=== PATIENT | male | born 1940 | race African-American/Black ===

== ENCOUNTER → 2016-08-24 | Outpatient (CLI) | payer OTHER, MEDICARE ==
[~2016-08-24] MED LIST: ALLEGRA180 MG PO; AMARYL2 MG PO; ASPIRIN EC81 M1 PO; AZOR 10-20 MG1 EACH PO; BUDESONIDE0.5 MG/2 M INH; GLUCOPHAGE500 MG PO; SYMBICORT160 MCG/4. INH; VENTOLIN HFA INH8 GM INH; ZETIA10 MG PO
== END ==
LOC: CAT 09:57
DX: R91.1 Solitary pulmonary nodule (principal)

== ENCOUNTER → 2017-08-23 | Outpatient (CLI) | payer OTHER, MEDICARE ==
[~2017-08-23] MED LIST changes: +KEFLEX500 M1 PO; +[UNRECOGNIZED DRUG - CODE] PO
== END ==
LOC: CAT 08:54
DX: R91.1 Solitary pulmonary nodule (principal); I25.10 Atherosclerotic heart disease of native coronary artery without angina pectoris; J98.11 Atelectasis; J44.9 Chronic obstructive pulmonary disease, unspecified

== ENCOUNTER 2017-09-11 23:08 | Emergency (ER) | payer OTHER, MEDICARE ==
[~2017-09-11] VITALS: Ht 182.9 cm; Wt 102.5 kg
[~2017-09-11 23:08] MED LIST changes: -KEFLEX500 M1 PO; -[UNRECOGNIZED DRUG - CODE] PO
[2017-09-11] MEDS ORDERED: [UNRECOGNIZED DRUG - CODE] PO (23:17)
[2017-09-12] MEDS ORDERED: KEFLEX500 M1 PO (00:56)
== END 2017-09-12 01:14 | disposition home or self-care (01) ==
LOC: ER 23:08
DX: R04.0 Epistaxis (principal); I10 Essential (primary) hypertension; E11.9 Type 2 diabetes mellitus without complications; M19.90 Unspecified osteoarthritis, unspecified site; J44.9 Chronic obstructive pulmonary disease, unspecified; E78.00 Pure hypercholesterolemia, unspecified; Z96.643 Presence of artificial hip joint, bilateral; Z87.891 Personal history of nicotine dependence

== ENCOUNTER → 2018-09-17 | Outpatient (CLI) | payer OTHER, MEDICARE ==
[~2018-09-17] MED LIST changes: +KEFLEX500 M1 PO; +[UNRECOGNIZED DRUG - CODE] PO
== END ==
LOC: CAT 09-10 13:53
DX: I25.10 Atherosclerotic heart disease of native coronary artery without angina pectoris (principal); R91.1 Solitary pulmonary nodule

== ENCOUNTER → 2019-01-23 | Outpatient (CLI) | payer OTHER, MEDICARE | LOC: RAD 13:38 | DX: R60.0 Localized edema (principal); J44.9 Chronic obstructive pulmonary disease, unspecified; M79.89 Other specified soft tissue disorders ==

== ENCOUNTER → 2019-03-13 | Outpatient (CLI) | payer OTHER, MEDICARE ==
[~2019-03-13] VITALS: Ht 182.9 cm; Wt 93.9 kg
[~2019-03-13] MED LIST changes: +ALOGLIPTIN12.5 MG PO; +BENAZEPRIL HCL20 MG PO; +ERGOCAL2500 UNIT PO; +LANTUS SUBQ; +LIPITOR40 MG PO; +LIPOFLAVONOID1 EACH PO; +OXYBUTYNIN 5 MG5 M2 PO; +PREDNISONE 5 MG5 M1 PO; +PROAIR HFA8.5 GM INH; +SPIRIVA INH; +TORSEMIDE20 MG PO; +TRAMADOL HCL50 MG PO; +TYLENOL EXTRA500 MG PO
--- NOTE | ~2019-03-13 | HPC ---
[facility] [address] [place] [address] PAIN MANAGEMENT CONSULTATION Name: SANDYPIETRO Ariel NIXON Room #: REG [facility]#: [id number] Admission: 03/13/19 Attend Phys: Jaden Guerrero MD Discharge: Date of : 42 Report #: [id number] THIS REPORT FOR: //name// CC: Jaden Harris DATE OF SERVICE: 03/13/2019 CHIEF COMPLAINT: Low back and sharp pain. HISTORY OF PRESENT ILLNESS: The patient is a 78-year-old gentleman who has been referred to the pain clinic for evaluation. He has been experiencing pain since 11/2018. It involves his lower back. He describes it as constant, periodic, aching and rates it as a 7/10. Pain is exacerbated when he gets out of bed. He notes that the pain improves when he is sitting and stable in one place. Describes it as aching, throbbing and sharp and rates it as a 7/10 today. On average, it is about a 3, can rise to the level 9/10 on the worst days. He did have some similar pain about 3 years ago. He has tried heat and cold, but not sure how much those benefited him. He has been using a heating pad. He has used tenths in the back for a short period of time. Has used some lidocaine patches [id number]. He has not had back surgery. Denies any GI problems associated with this. He does have diabetes. His blood sugars have been in about the 140-190 range. He has used oxygen for about the last 6 years. PAST MEDICAL HISTORY: COPD, diabetes, hypertension and hypercholesterolemia. The patient is normally on 3-6 liters of oxygen via nasal cannula. 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 CURRENT MEDICATIONS: Insulin Lantus, albuterol, ProAir 8.5 grams, Spiriva hand inhaler, Bi-flow/lemon/VIT Lipo-Flavonoid caplets b.i.d., Tylenol Extra Strength 500 mg t.i.d. as needed, vitamin D2 2500 units, takes 5000 units daily, oxybutynin 5 mg, 10 mg daily, torsemide 20 mg, Lotensin 20 mg, alogliptin 12.5 mg, Lipitor 40 mg, prednisone 5 mg 3 tablets daily, Symbicort 160/4.5, Ventolin inhaler, aspirin 81 mg, Lisseth 180 mg, ezetimibe 10 mg (Zetia), Glucophage 500 mg b.i.d., Diego 06/12. ALLERGIES: No known drug allergies. SOCIAL HISTORY: He is retired, has been retired for 21 years. REVIEW OF SYSTEMS: Generally good health, fatigue, weakness, wears glasses, hearing loss, shortness of breath, awakens at night to urinate, lightheadedness, dizziness, numbness and tingling sensation use of insulin anemia. [address] [address] PAIN MANAGEMENT CONSULTATION Name: PIETRO DELGADO JR Room #: REG [facility] Phyllis#: [id number] Admission: 03/13/19 Attend Phys: Jaden Guerrero MD Discharge: Date of : 42 Report #: [id number] LABORATORY DATA: No new laboratory values are available at the time of our interview. PAIN CLINIC ASSESSMENT/PQRS: 1. Osteoarthritis. The patient does have osteoarthritic changes that he has had hip surgeries. 2. Rheumatoid arthritis. The patient is not being treated for rheumatoid arthritis. 3. Height 6 feet 0, weight 207 pounds, BMI is 28.1. 4. Vital signs: Blood pressure 119/60, pulse 86, respiratory rate 14, room air saturation is 97% with oxygen nasal cannula. 5. Pain intensity, 02/25. 6. Fall risk. The patient has not fallen in the last 3 months. 7. Blood thinner. The patient is not on a blood thinning medication. 8. Hypertension. The patient is being treated for hypertension. 9. Opioids. The patient is not on her opioid regimen. 10. Risk assessment tool, low for opioid use. 11. Functional assessment tool, . 12. Recreational drugs. The patient denies. 13. Tobacco: The patient is a former smoker. He has a 40-pack 2 pack a day history, total of 80 pack years. He has not smoked for the last 9 years. 14. Alcohol: The patient denies use of frequent use of alcoholic beverages. PHYSICAL EXAMINATION: GENERAL: The patient is a well-developed black male. He appears his stated age. He is alert and oriented x 3. His affect is appropriate. Speech is fluent. HEENT: Normocephalic, atraumatic. Extraocular eye muscles intact. Sclerae nonicteric. Mucous membranes are moist. The patient is using oxygen via nasal cannula. Decreased breath sounds in the lung shaffer. HEART: Regular rate. ABDOMEN: Nontender. EXTREMITIES: Upper extremity muscle strength judged to be 4+/5 for the major muscle groups in the upper extremity. The patient without significant scoliosis, kyphosis or lordosis. The patient has pain and discomfort in his lower back. He has pain and discomfort in the right shoulder. Lower extremity muscle strength judged to be 5-/5 for the major muscle groups in the lower extremity. IMPRESSION: 1. Back pain. 2. Chronic obstructive pulmonary disease. 3. Diabetes. 4. Hypertension. 5. Hypercholesterolemia. [facility] [address] [place] [address] PAIN MANAGEMENT CONSULTATION Name: PIETRO DELGADO Ariel JR Room #: REG [facility]#: [id number] Admission: 03/13/19 Attend Phys: Jaden Guerrero MD Discharge: Date of : 42 Report #: [id number]. The patient is normally on 3-6 liters of oxygen via nasal cannula. RECOMMENDATIONS: We discussed treatment options with the patient. The patient is using oxygen on a regular basis. He has pain in the low back area as well as some pain and discomfort in his shoulders and some generalized pain. I think to try a conservative approach would be reasonable. We discussed the possibility of injecting the low back area, myofascial pain areas with local anesthetic and steroid. The patient is receiving insulin because of his diabetes. At this juncture, he would like to consider the most conservative approach that would not change his blood sugars. We will try a script of tramadol 50 mg 1 p.o. t.i.d. He will return to the Pain clinic as needed. Hopefully, he will find that this medication is helpful, should he elected to undergo trigger point injections we can consider that in the next visit. We would like to thank you for letting us participate in his care. We hope he continues to improve. By: [id number] Jaden Guerrero MD /blanca
[2019-03-13 12:55] VITALS: BP 119/60
--- NOTE | 2019-03-13 13:18 | NUR ---
Pain Clinic Assessment: 1. History of Osteoarthritis: History of Rheumatoid Arthritis: 2. Height: 6 ft. 0 in. 182.9 cm. Weight: 207.0 lb. oz. 93.895 kg. Patient's BMI: 28.1 3. Vital Signs: BP: 119/60 Pulse: 86 Resp: 14 Temp: 02 Sat: 97 ECG Mon: 4. Pain Intensity: 7 5. Fall Risk: Dizziness: N Needs help standing or walking: Y Fallen in the last 3 months: N Fall risk comments: 6. Patient on Blood Thinner: None 7. History of Hypertension: Y 8. Opioid Therapy greater than 6 weeks: Opiate Contract Signed: 9. Risk Assessment Tool Provided: LOW 10. Functional Assessment Tool: 11. Recreational Drug Use: Never Drug Type: Tobacco Use: Never Smoker Tobacco Type: Amount or Packs/day: How Many Years: Alcohol Use: No Frequency: Quant:
== END ==
LOC: PAIN 06:49
DX: M54.5 Low back pain (principal); I10 Essential (primary) hypertension; J44.9 Chronic obstructive pulmonary disease, unspecified; E11.9 Type 2 diabetes mellitus without complications; E78.00 Pure hypercholesterolemia, unspecified; Z79.899 Other long term (current) drug therapy; Z79.4 Long term (current) use of insulin

== ENCOUNTER 2019-04-28 12:19 | Inpatient (IN) | payer OTHER, MEDICARE ==
[~2019-04-28] VITALS: Ht 182.9 cm; Wt 94.8 kg
--- NOTE | ~2019-04-28 | EMS ---
[facility] [address] [place] [address] EMS Patient Care Report Name: PIETRO DELGADO JR [id number] Admission: ������������������ Attend Phys: Discharge: ������������������ Date of : 42 Report #: [id number] THIS REPORT FOR: //name// Report Transmitted: 04/28/2019 11:52 EMS Care Summary [facility] MED-ACT Incident [id number] @ 04/28/2019 11:32 Incident Location [address] [place] [address] Patient PIETRO DELGADO Male, 78 Years 1940 Patient Address [address] [place] [address] Patient History Chronic Obstructive Pulmonary Disease (COPD),Diabetes,Back Pain (Chronic), Patient Allergies No known allergies, Patient Medications Other, Chief Complaint shortness of breath Disposition Transported No Lights/[place] Dispatch Reason Breathing Problem Transported To [facility] Narrative Arrived to find pt seated in chair in bedroom, a&ox4, increased wob, home O2, tachypneic, anxious and in the presence of his anxious daughter. Pt reports last Saturday, pt developed some productive cough, weakness and [facility] [address] [place] [address] EMS Patient Care Report Name: PIETRO DELGADO JR [facility] [id number] Admission: ������������������ Attend Phys: Discharge: ������������������ Date of : 42 Report #: [id number] increased blood sugar levels. Pt states he noticed that his oxygen was not flowing this morning around 3:30 and saw that his concentrator was not working. Pt states he walked out to the garage and got a portable tank. Later in the morning pt states he called his daughter and when she arrived at the house she called 911 due to pts dyspnea and pts c/o back pain. Pt also reports he was under stress due to a recent of a neighbor. Pt reports pain upon inspiration, productive brownish sputum, shortness of breath. Pt denies any chills or fever, n/v/diarrhea or cardiac related pain. Pt also states he has not had pneumonia in the past. Pt was able to stand and take a few steps to the cot and secured with cot straps in upright position. Pt taken to MICU for non-emergent transport to [place] as pt requested. Pts condition improved somewhat but still appeared to have increased work of breathing. Pt was able to self-transfer from cot to hospital bed without disability. Pt report and transfer of care given to SALES PROGRAM MANAGER room #10. Initial Vitals @12:03P: 109,EtCO2: 7,SpO2: 100,[place] Suspected: false @11:54P: 109,R: 7,BP: 158/73,Temp: 99.2F,Glucose: -2,EtCO2: 14,SpO2: 100,[place] Suspected: false @11:42P: 110,R: 24,BP: 160/73,Pain: 0/10,GCS: 15,SpO2: 93,Revised Trauma: 12, Assessments @11:42MENTAL:Person Oriented,Time Oriented,Place Oriented,Event Oriented,SKIN:HEENT:Head/Face: No Abnormalities,Neck/Airway: No Abnormalities,LUNG SOUNDS:General: No Abnormalities,ABDOMEN:General: No Abnormalities,PELVIS//GI:No Abnormalities,EXTREMITIES:Left Arm: No Abnormalities,Right Arm: No Abnormalities,Left Leg: No Abnormalities,Right Leg: No Abnormalities,PULSE:Radial: 2+ Normal,NEURO:No Abnormalities, Impression Shortness of breath Procedures @12:0312-Lead ECGResponse: UnchangedSucceeded@11:53Saline Lock 10cc (18 ga) Site: Hand-RightResponse: UnchangedSucceeded Timeline 11:32,Call Received 11:32,Psap Call 11:32,Dispatched [address] [address] EMS Patient Care Report Name: PIETRO DELGADO Room #: [facility] M.R.#: [id number] Admission: ������������������ Attend Phys: Discharge: ������������������ Date of : 42 Report #: [id number] 11:33,En Route 11:39,On Scene 11:41,At Patient 11:42,BP: 160/73 M,PULSE: 110,RR: 24 R,SPO2: 93 Ox,ETCO2: ,BG: ,PAIN: 0,GCS: 15, 11:53,Saline Lock 10cc 18 ga Site: Hand-Right,Response: UnchangedSucceeded, 11:54,BP: 158/73 M,PULSE: 109,RR: 7 R,SPO2: 100 Ox,ETCO2: 14 ,BG: -2,PAIN: ,GCS: , 11:59,Depart Scene 12:03,12-Lead ECG,Response: UnchangedSucceeded, 12:03,BP: / M,PULSE: 109,RR: R,SPO2: 100 Ox,ETCO2: 7 ,BG: ,PAIN: ,GCS: , 12:12,At Destination 12:50,Call Closed Disclaimer v1.1 Copyright 2019 [employer] This EMS Care Summary contains data elements from the applicable legal record (which may be displayed differently). It is designed to provide pertinent information for the following purposes: continuity of care, clinical quality, and state data reporting. The complete legal record is available to ED staff and administrators of the receiving hospital in [email or web address] Patient Tracker. All data is provided "as is."
[2019-04-28 12:20] VITALS: BP 158/79
[2019-04-28 12:40] LABS: ABSOLUTE NEUTROPHILS 12.3 thou/uL (1.4-8.2); BASOPHILS 0.7 % (0.0-2.0); EOSINOPHILS 1.8 % (0.0-3.0); HEMOGLOBIN 9.1 gm/dL (14.0-18.0); LYMPHOCYTES 6.3 % (24.0-44.0); MCH 25.2 pg (26.0-34.0); MCHC 30.4 g/dL (28.0-37.0); MCV 82.8 fL (80.0-100.0); MONOCYTES 6.8 % (1.0-8.0); PLATELET COUNT 220 thou/uL (150-400); POLYS 84.4 % (36.0-66.0); RBC 3.62 mil/uL (4.50-6.00); RDW 15.7 % (10.5-14.5); WBC 14.6 thou/uL (4.0-11.0)
[2019-04-28 12:48] LABS: ANION GAP 9 mmol/L (7-16); BUN 20 mg/dL (7-18); CALCIUM 9.3 mg/dL (8.5-10.1); CHLORIDE 102 mmol/L (98-107); CO2 28 mmol/L (21-32); CREATININE 1.6 mg/dL (0.7-1.3); GLUCOSE 367 mg/dL (74-106); POTASSIUM 4.5 mmol/L (3.5-5.1); SODIUM 139 mmol/L (136-145)
[2019-04-28 12:58] LABS: ALBUMIN 2.9 g/dL (3.4-5.0); MAGNESIUM 2.1 mg/dL (1.8-2.4); SGOT 15 U/L (15-37); SGPT 27 U/L (30-65); TOTAL BILIRUBIN 0.5 mg/dL (<0.1-1.0); TOTAL PROTEIN 7.2 g/dL (6.4-8.2); TROPONIN-I <0.06 ng/mL (<0.06)
[2019-04-28 14:38] VITALS: BP 138/64
[2019-04-28 15:00] VITALS: BP 117/62
[2019-04-28 15:28] VITALS: BP 146/61
--- NOTE | 2019-04-28 17:51 | NUR ---
ASSUMED CARE OF PATIENT AROUND 1530 WHEN PATIENT WAS ADMITTED TO THE FLOOR. PATIENT ALERT AND ORIENTED. PATIENT HAVING HARDER TIME BREATHING THAN USUAL DUE TO PNEUMONIA. PATIENT STANDBY ASSIST. PATIENT RECIEVED IV ANTIBIOTIC THERAPY. PATIENT EXPERIENCING LOWER BACK PAIN THAT HAS BEEN CHRONIC AND WAS JUST ADMINISTERED TRAMADOL IN AN EFFORT TO MAKE HIM COMFORTABLE.
[2019-04-28 19:51] VITALS: BP 132/72
[2019-04-28 23:56] VITALS: BP 132/55
[2019-04-29 04:26] VITALS: BP 137/64
--- NOTE | 2019-04-29 05:33 | NUR ---
PATIENT IS PROGRESSING SLOWLY IN HIS CARE PLAN. VITAL SIGNS STABLE WITH PATIENT HAVING NO COMPLAINTS OF PAIN OR NAUSEA. FULLY ORIENTED, PATIENT IS ABLE TO CALL APPROPRIATELY FOR NEEDS AND PARTICIPATE IN CARE. BREATHING STABLE EVIDENCED BY ASSESSMENT AND SPOT OXYGENATION CHECKS. PATIENT IS SHORT OF AIR WITH ACTIVITY AND REQUIRES TITRATION WHEN AMBULATING. UP MULTIPLE TIMES WITH ASSISTANCE INCIDENT FREE. PATIENT IS CONSIDERED HIGH FALL RISK PRIMARILY DUE TO BREATHING STATUS. CONTINUE PLAN OF CARE.
[2019-04-29 07:47] VITALS: BP 112/58
--- NOTE | 2019-04-29 08:03 | EKG ---
[address] [place] [address] ELECTROCARDIOGRAM REPORT Name: PIETRO DELGADO JR Room #: 358-P ADM IN M.R.#: [id number] ������������������ Admission: 04/28/19 ������������������ Attend Phys: Zafar Harris MD Discharge: ������������������ Date of : 42 Report #: [id number] ����������������������������������������������������������������� [id number] THIS REPORT FOR: //name// [facility] ED Test Date: 2019-04-28 Test Time: 12:33:57 Pat Name: PIETRO DELGADO Department: Room: 358 Gender: M [employer]: MICHAEL : 1940 Requested By: Johny Tony Order Number: [id number] MD: Royal Bergman Measurements Intervals [place] Rate: 109 P: 42 [place]: 113 QRS: -21 QRSD: 87 T: 108 QT: 297 QTc: 400 Interpretive Statements Sinus tachycardia Borderline left axis deviation Nonspecific T abnrm, anterolateral leads Compared to ECG 11/28/2011 06:58:31 No significant change was found Electronically Signed On 04-29-2019 8:03:13 CDT by Royal Bergman [email or web address] ��������������������������������������������� <ELECTRONICALLY SIGNED> ���������������������������������������� By: Royal Bergman MD, [facility] ��������������������������������������������� 04/29/19 0803 1233 1233 Royal Bergman MD, [facility] /EPI
--- NOTE | 2019-04-29 08:48 | NUR ---
PT IS A&0X4, AMB W/SBA HERE, INDEPENDENTLY WALKS AT HOME. CARDIAC MONITORED. WEARS 02 AT HOME 11/03, COMES HERE SATURDAY AND SATURDAY FOR COPD THERAPY. ENCOURAGED PT TO USE CALL LIGHT FOR ANY NEEDS. HAS NONPRODUCTIVE COUGH, RT TXS, ACCU CHECKS, NPO CURRENTLY FOR CT OF CHEST. HAS HAD A GOOD APPETITE. SEE SEPARATE INTERVENTIONS FOR ASSESSMENTS
[2019-04-29 11:59] VITALS: BP 122/44
--- NOTE | 2019-04-29 14:35 | NUR ---
assessment: CM REVIEWED CHART AND MET WITH PATIENT AT THE BEDSIDE. PT WAS ADMITTED WITH COPD/CAP. PT REPORTS HE LIVES IN A HOUSE WITH HIS . PT REPORTS TWO STEPS TO ENTER WITH NO HANDRAILS. PT REPORTS ALL HIS NEEDS ARE ON ONE LEVEL BUT HE DOES HAVE A FLIGHT OF STEPS TO THE UPSTAIRS WITH HANDRAILS AND TO THE BASEMENT BUT HE DOES NOT HAVE TO USE THEM. PT REPORTS HE AMBULATES INDEPENDENTLY. PT HAS OXYGEN ARRANGED AT HOME THROUGH [facility] AND REPORTS BEING ON ANYWHERE FROM 4-6L AT HIS BASELINE. PT REPORTS HE HAD HH IN THE PAST BUT UNSURE THE AGENCY. CM DISCUSSED ROLE. PT IS ANTICIPATING GOING HOME WITH NO NEEDS. PT/OT EVALS ARE PENDING. CM WILL CONTINUE TO FOLLOW TO ASSIST NEEDED.
[2019-04-29 17:58] VITALS: BP 117/58
--- NOTE | 2019-04-29 18:18 | NUR ---
PT REMAINS A&0X4, STILL VERY SOA W/AMBULATION EVEN BED TO CHAIR, THERAPY WORKED WITH HIM AND REPORT OFF SAME, HAD ELEVATED 02, THEN DECREASED IT, PT IN GOOD SPIRITS, IS ANTICIPATING COMPANY. HAD SHOWER DURING THIS NURSES LATE LUNCH, REPORTS OF HIM HAVING INADVERTENTLY LOOSENED IV UPON TOILETING, AIDE NEARBY, NEW IV STARTED IN RAC BY OTHER STAFF. ENCOURAGED PT TO CALL FOR ANY NEEDS. HE HAS QUESTIONS ABOUT CARES THEN APOLOGIZES, ENCOURAGED HIM TO ASK ANYTHING ANYTIME EVEN IF REPEATED QUESTIONS
[2019-04-29 19:30] VITALS: BP 117/50
[2019-04-30 04:40] VITALS: BP 124/68
--- NOTE | 2019-04-30 06:08 | NUR ---
PT MAKING PROGRESS TOWARDS GOALS. PT REPORTING THAT HE FEELS HE IS BREATHING MUCH BETTER THAN WHEN HE WAS ADMITTED. "YEA I'M DEFINITELY BETTER. I GOT AN APPETITE NOW TOO."
[2019-04-30 08:25] VITALS: BP 148/66
[2019-04-30 11:39] VITALS: BP 133/64
[2019-04-30 16:43] VITALS: BP 129/63
--- NOTE | 2019-04-30 18:00 | NUR ---
ASSUMED CARE OF PATIENT AT 0700. PATIENT IS STILL HERE BECAUSE HE REQUESTED TO, FEELING THAT HE IS NOT BACK TO BASELINE AND STILL HAVING SOME DYSPNEA. PATIENT WAS BUMPED UP TO VERY HIGH ON THE SLIDING SCALE INSULIN TODAY DUE TO BLOOD SUGARS CONSISTANTLY IN THE 300'S. PATIENT HAS RECIEVED STEROIDS AND ANTIBIOTIC FOR COPD AND PNEUMONIA. PATIENT STILL AT 6 LITERS OXYGEN, HIS BASELINE AT HOME IS 4-6. PATIENT RECIEVED NEW IV ON LEFT HAND DUE TO RIGHT ANTECUBITAL FAILING.
[2019-04-30 19:38] VITALS: BP 158/56
[2019-05-01 03:59] VITALS: BP 132/60
--- NOTE | 2019-05-01 04:29 | NUR ---
PT REPORTS THAT HE FEELS HE IS BREATHING WELL AND WILL LIKELY GO HOME TODAY. SOA WITH ACTIVITY BUT PT EASILY RECOVERS WITHIN A FEW MINUTES WITH REST. X1 REQUEST FOR PRN RT TX DUE TO FEELING SOA. "I USUALLY HAVE AN INHALER WHEN I FEEL LIKE THIS AT HOME." RT PROVIDED TX.
[2019-05-01 07:18] VITALS: BP 131/68
[2019-05-01] MEDS ORDERED: CEFDINIR300 MG PO (07:34)
[2019-05-01] MEDS ORDERED: PREDNISONE 10 M10 MG PO (07:35)
[2019-05-01 09:44] VITALS: BP 131/68
--- NOTE | 2019-05-01 10:43 | NUR ---
ASSSUMED PT CARE AT [facility] 0700. PT A&O X4. FALL PRECAUTIONS IN PLACE. ASSESSMENT CHARTED. PT STATES HE DOES NOT HAVE CHEST PAIN. VITAL SIGNS STABLE. BLOOD SUGAR STABLE. PT ON 6 L NC. PT STATES NORMAL AT HOME O2 LEVEL IS 4-6 L. PT DENIES HAVING SOB. PT AMBULATES STEADY WITH ASSIST. PT DISCHARGING HOME WITH FAMILY. PT RECIEVED DISCHARGE EDUCATION AND INFORMATION. PT STATED UNDERSTANDING AND DENIES HAVING FURTHER QUESTIONS. IV DC. TELE DC. AWAITING FAMILY TO ARRIVE. PT WILL BE TRANSPORTED OFF UNIT WITH HOSPITAL STAFF.
== END 2019-05-01 11:54 | disposition home or self-care (01) | DRG 871 ==
LOC: ER 12:19 → 3W 13:37 → EROBS 13:37 → 3W 15:00
PROVIDERS: Emergency Medicine; ADMIT Family Medicine
DX: A41.9 Sepsis, unspecified organism (principal); J18.9 Pneumonia, unspecified organism; J44.1 Chronic obstructive pulmonary disease with (acute) exacerbation; J44.0 Chronic obstructive pulmonary disease with (acute) lower respiratory infection; E11.9 Type 2 diabetes mellitus without complications; I10 Essential (primary) hypertension; E78.5 Hyperlipidemia, unspecified; Z96.643 Presence of artificial hip joint, bilateral; G89.29 Other chronic pain; M54.9 Dorsalgia, unspecified; R09.02 Hypoxemia; Z87.891 Personal history of nicotine dependence; Z79.4 Long term (current) use of insulin; Z79.899 Other long term (current) drug therapy
CPT/HCPCS: 10879

== ENCOUNTER → 2019-08-07 | Outpatient (CLI) | payer OTHER, MEDICARE ==
[~2019-08-07] MED LIST changes: +CEFDINIR300 MG PO; +PREDNISONE 10 M10 MG PO
[2019-08-07 11:06] LABS: CREATININE 1.3 mg/dL (0.7-1.3)
== END ==
LOC: CAT 09:12
PROVIDERS: Family Medicine
DX: R91.1 Solitary pulmonary nodule (principal); I70.0 Atherosclerosis of aorta; I25.10 Atherosclerotic heart disease of native coronary artery without angina pectoris; J98.4 Other disorders of lung; J90 Pleural effusion, not elsewhere classified

== ENCOUNTER → 2019-10-12 | Outpatient (CLI) | payer OTHER, MEDICARE | LOC: SJCVC 11:22 | DX: R94.31 Abnormal electrocardiogram [ECG] [EKG] (principal); I10 Essential (primary) hypertension; I25.10 Atherosclerotic heart disease of native coronary artery without angina pectoris; E11.52 Type 2 diabetes mellitus with diabetic peripheral angiopathy with gangrene; E78.00 Pure hypercholesterolemia, unspecified; J44.9 Chronic obstructive pulmonary disease, unspecified; I65.23 Occlusion and stenosis of bilateral carotid arteries; I27.20 Pulmonary hypertension, unspecified; Z87.891 Personal history of nicotine dependence; Z79.899 Other long term (current) drug therapy ==

== ENCOUNTER → 2020-01-18 | Outpatient (CLI) | payer OTHER, MEDICARE | LOC: SJCVCIMAG 12:07 | DX: E11.51 Type 2 diabetes mellitus with diabetic peripheral angiopathy without gangrene (principal); I10 Essential (primary) hypertension; I25.10 Atherosclerotic heart disease of native coronary artery without angina pectoris; J44.9 Chronic obstructive pulmonary disease, unspecified; Z87.891 Personal history of nicotine dependence ==

== ENCOUNTER → 2020-03-17 | Outpatient (CLI) | payer OTHER, MEDICARE | LOC: RAD 12:07 | PROVIDERS: ATTEND Internal Medicine | DX: J44.9 Chronic obstructive pulmonary disease, unspecified (principal) ==

== ENCOUNTER → 2020-11-09 | Outpatient (CLI) | payer OTHER, MEDICARE | LOC: SJCVCIMAG 08:49 | PROVIDERS: ATTEND Internal Medicine Cardiovascular Disease | DX: R94.31 Abnormal electrocardiogram [ECG] [EKG] (principal); I70.201 Unspecified atherosclerosis of native arteries of extremities, right leg; M79.661 Pain in right lower leg; M79.662 Pain in left lower leg; I10 Essential (primary) hypertension; E78.00 Pure hypercholesterolemia, unspecified; E11.51 Type 2 diabetes mellitus with diabetic peripheral angiopathy without gangrene; R60.0 Localized edema; I27.20 Pulmonary hypertension, unspecified; J44.9 Chronic obstructive pulmonary disease, unspecified; I65.23 Occlusion and stenosis of bilateral carotid arteries; R00.0 Tachycardia, unspecified; I25.10 Atherosclerotic heart disease of native coronary artery without angina pectoris; Z99.81 Dependence on supplemental oxygen; Z87.891 Personal history of nicotine dependence; Z72.89 Other problems related to lifestyle; Z79.82 Long term (current) use of aspirin; Z79.899 Other long term (current) drug therapy; Z79.4 Long term (current) use of insulin ==

== ENCOUNTER → 2021-05-29 | Outpatient (CLI) | payer OTHER, MEDICARE | LOC: SJCVCIMAG 10:45 | PROVIDERS: ATTEND Internal Medicine Cardiovascular Disease | DX: R94.31 Abnormal electrocardiogram [ECG] [EKG] (principal); I70.201 Unspecified atherosclerosis of native arteries of extremities, right leg; I25.10 Atherosclerotic heart disease of native coronary artery without angina pectoris; J44.9 Chronic obstructive pulmonary disease, unspecified; I10 Essential (primary) hypertension; E78.00 Pure hypercholesterolemia, unspecified; I73.9 Peripheral vascular disease, unspecified; I27.20 Pulmonary hypertension, unspecified; E11.9 Type 2 diabetes mellitus without complications; Z79.899 Other long term (current) drug therapy; Z87.891 Personal history of nicotine dependence; Z72.89 Other problems related to lifestyle ==

== ENCOUNTER → 2021-06-07 | Outpatient (CLI) | payer OTHER, MEDICARE | LOC: RAD 11:38 | PROVIDERS: ATTEND Internal Medicine | DX: J84.9 Interstitial pulmonary disease, unspecified (principal); J44.9 Chronic obstructive pulmonary disease, unspecified; R06.02 Shortness of breath ==

== ENCOUNTER → 2021-08-07 | Outpatient (CLI) | payer OTHER, MEDICARE | LOC: RAD 11:54 | PROVIDERS: ATTEND Internal Medicine | DX: R91.8 Other nonspecific abnormal finding of lung field (principal) ==

== ENCOUNTER → 2021-09-27 | Outpatient (CLI) | payer OTHER, MEDICARE | LOC: NUC 11:06 | PROVIDERS: ATTEND Internal Medicine | DX: Z92.241 Personal history of systemic steroid therapy (principal); Z79.52 Long term (current) use of systemic steroids ==